=== PATIENT | female | born 1960 | race Caucasian/White ===

== ENCOUNTER 2017-01-02 23:01 | Emergency (ER) | payer OTHER ==
[2017-01-02 23:17] VITALS: BP 114/80
--- NOTE | 2017-01-02 23:38 | EDM.PDOC ---
ED HPI GENERAL MEDICAL PROBLEM - General Chief Complaint: Head Injury Stated Complaint: DROPPED SOMETHING ON HEAD Time Seen by Provider: 01/02/17 23:37 - History of Present Illness INITIAL COMMENTS - FREE TEXT/NARRATIVE: 56-year-old female presents to the emergency room with a head injury. Around 9:30 or 10:00 this morning the patient was moving a baking rack from the lower portion of the rack and forgot there was a 2 gallon glass jar sitting on a shelf approximately 2-1/2-3 feet above her head. When she moved the rack the jar fell down and hit her in the back of the head. She had no loss of consciousness and has done well through the day this evening she develops a mild headache and had an intermittent bout of nausea no vomiting. The patient on occasion gets headaches that are much worse than this worse she has to take something for them she has not needed anything for this headache. After this occurred she had some mild bleeding this was easy to control and she went on with her day. This evening she developed a mild headache and had an episode of mild nausea. Her tetanus status is up-to-date. Occipital Pain Score (Numeric/FACES): 3 - Related Data Allergies Allergy/AdvReac Type Severity Reaction Status Date / Time No Known Allergies Allergy Verified 01/02/17 23:17 Home Meds: Home Meds . [No Known Home Meds] 01/02/17 [History] Past Medical History Musculoskeletal History: Reports: Osteoporosis Social & Family History - Tobacco Use Smoking Status *Q: Never Smoker - Caffeine Use Caffeine Use: Reports: Soda - Recreational Drug Use Recreational Drug Use: No ED ROS GENERAL - Review of Systems Review Of Systems: See Below Constitutional: Reports: No Symptoms HEENT: Reports: No Symptoms Respiratory: Reports: No Symptoms Cardiovascular: Reports: No Symptoms GI/Abdominal: Reports: Nausea. Denies: Abdominal Pain, Vomiting Neurological: Reports: Headache. Denies: Confusion, Dizziness, Numbness, Pre- Existing Deficit, Seizure, Syncope, Tingling, Trouble Speaking, Difficulty Walking, Weakness, Change in Speech, Gait Disturbance Psychiatric: Reports: No Symptoms ED EXAM, HEAD INJURY - Physical Exam Exam: See Below Exam Limited By: No Limitations General Appearance: Alert, No Apparent Distress Head: Normocephalic, Other (She has some swelling over the occiput a 2 cm laceration is noted with some mild gaping approximately 2 mm.) Nexus Criteria: No: Posterior, Midline Cervical Tenderness, Evidence of Intoxication, Altered Level of Consciousness, Focal Neurological Deficit, Painful Distraction Injuries Eyes: Bilateral Eye: EOMI, Normal Inspection, PERRL Ears: Normal External Exam, Normal Canal, Hearing Grossly Normal, Normal TMs Nose: Normal Inspection Throat/Mouth: Normal Inspection, Normal Lips, Normal Teeth, Normal Gums, Normal Oropharynx, Normal Voice, No Airway Compromise Neck: Non-Tender, Full Range of Motion, Other (She is developing some bilateral paraspinous muscle discomfort most noticeable at the base of the skull) Respiratory: No Respiratory Distress, Lungs Clear, Normal Breath Sounds Cardiovascular: Regular Rate, Rhythm, No Edema, No Murmur Extremities: Normal Inspection 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: 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 II-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 after her head injury she is doing okay she's developed a mild headache and has had some intermittent nausea this evening no vomiting neurologic examination is entirely within normal limits. Discussed the pros and cons of the CAT scan and is determined by the patient her and myself to hold off at this point. They live very close to the hospital and can return with any questions or problems there is some assurances in the timing that she has done well the patient occasionally gets headaches and those are much worse than the headache she has at this time. The patient sustained fairly superficial laceration to her occipital region this is nearly 2 cm in length gaps a couple of millimeters. Offered to repair as primary closure will give less of a scar down the road. She would like to hold off on this at this point. Departure - Departure Time of Disposition: 00:21 Disposition: Home, Self-Care 01 Clinical Impression: Head injury - Discharge Information Instructions: Head Injury, Adult Referrals: Kristin Tafoya NP [Primary Care Provider] - Forms: ED Department Discharge Additional Instructions: Return to the emergency room with any questions problems or worsening symptoms. Be awoken every 2 hours this evening to ensure normal behavior and activity. Follow-up with your regular provider in the next few days if needed.
== END 2017-01-03 00:25 | disposition home or self-care (01) ==
LOC: JD.ED 23:01
DX: S09.90XA Unspecified injury of head, initial encounter (principal); W20.8XXA Other cause of strike by thrown, projected or falling object, initial encounter
CPT/HCPCS: 99282; 99283

== ENCOUNTER 2017-10-05 07:43 | Day surgery (SDC) | payer OTHER ==
[~2017-10-05 07:43] MED LIST: Lactated Ringers 1,000 ML IV SCH; Lidocaine 1%/Sod Bicarbonate in NS 8.4% 1 ML Syringe IDERM PRN; Sodium Chloride 0.9% 10 ML Syringe FLUSH PRN
--- NOTE | 2017-10-05 08:02 | PCM.PREANE ---
Preanesthetic Assessment - Anesthesia/Transfusion/Family Hx Anesthesia History: No Prior Anesthesia Family History of Anesthesia Reaction: No Transfusion History: No Prior Transfusion(s) - Review of Systems General: No Symptoms Pulmonary: No Symptoms Cardiovascular: No Symptoms Gastrointestinal: No Symptoms Neurological: No Symptoms Other: Reports: Easy Bruising - Physical Assessment NPO Status Date: 10/04/17 NPO Status Time: 00:00 Pulse: 73 O2 Sat by Pulse Oximetry: 98 Respiratory Rate: 16 Blood Pressure: 111/78 Temperature: 36.8 C Height: 1.68 m Weight: 64.773 kg ASA Class: 2 Mental Status: Alert & Oriented x3 Dentition: Reports: [place](s) Thyro-Mental Finger Breadths: 3 Mouth Opening Finger Breadths: 3 ROM/Head Extension: Full Lungs: Clear to Auscultation, Normal Respiratory Effort Cardiovascular: Regular Rate, Regular Rhythm, No Murmurs - Allergies Allergies/Adverse Reactions: Allergies Allergy/AdvReac Type Severity Reaction Status Date / Time No Known Allergies Allergy Verified 10/04/17 14:25 - Blood Blood Available: No Product(s) Available: None - Anesthesia Plan Pre-Op Medication Ordered: None - Acknowledgements Anesthesia Type Planned: MAC Pt an Appropriate Candidate for the Planned Anesthesia: Yes Alternatives and Risks of Anesthesia Discussed w Pt/Guardian: Yes Pt/Guardian Understands and Agrees with Anesthesia Plan: Yes PreAnesthesia Questionnaire HEENT History: Reports: Impaired Vision, Other (See Below) Other HEENT History: wears glasses Cardiovascular History: Reports: Other (See Below) Other Cardiovascular History: rapid heart rate Respiratory History: Reports: None Gastrointestinal History: Reports: Diverticulosis, GERD, Other (See Below) Other Gastrointestinal History: liver cyst, sigmoid thickening Genitourinary History: Reports: None 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 DISTILLERY History: Reports: , Spontaneous , Other (See Below) Other OB/BYN History: , SAB, vaginal atrophy Musculoskeletal History: Reports: Osteoporosis Neurological History: Reports: None Psychiatric History: Reports: None Endocrine/Metabolic History: Reports: Osteopenia, Vitamin D Deficiency Hematologic History: Reports: None Immunologic History: Reports: None Oncologic (Cancer) History: Reports: None Dermatologic History: Reports: None - Past Surgical History Head Surgeries/Procedures: Reports: None Cardiovascular Surgical History: Reports: None GI Surgical History: Reports: None Female Surgical History: Reports: None Male Surgical History: Reports: None Endocrine Surgical History: Reports: None Neurological Surgical History: Reports: None Musculoskeletal Surgical History: Reports: None Oncologic Surgical History: Reports: None Dermatological Surgical History: Reports: None - SUBSTANCE USE Smoking Status *Q: Never Smoker Tobacco Use Within Last Twelve Months: No Second Hand Smoke Exposure: No Days Per Week of Alcohol Use: 1 Number of Drinks Per Day: 1 Total Drinks Per Week: 1 Recreational Drug Use History: No - HOME MEDS Home Medications: Home Meds Alendronate Sodium [Fosamax] 70 mg PO DAILY 10/04/17 [History] Ca Carbonate/Vitamin D3/Vit K [Calcium + D Soft Chewable Tab] 1 tab PO BID 10/04 [History] - CURRENT (IN HOUSE) MEDS Current Meds: Current Medications Lactated Ringer's (Ringers, Lactated) 1,000 mls @ 125 mls/hr IV ASDIRECTED ALMA Lidocaine/Sodium Bicarbonate (Buffered Lidocaine 1% In Ns 8.4%) 0.25 ml IDERM ONETIME PRN PRN Reason: Prior to IV Start Sodium Chloride (Saline Flush) 10 ml FLUSH ASDIRECTED PRN PRN Reason: Keep Vein Open
[2017-10-05] MEDS ORDERED: Propofol 200 MG/20 ML SDV ONE ×2 (08:10→08:32)
[2017-10-05] MEDS ORDERED: Midazolam 1 MG/ML 2 ML SDV ONE (08:10)
[2017-10-05] MEDS ORDERED: Lidocaine 1% 4 ML ONE (08:10)
[2017-10-05] MEDS ORDERED: fentaNYL 100 MCG/2 ML SDV ONE (08:31)
--- NOTE | 2017-10-05 08:43 | PCM.OPNOTE ---
- General Post-Op/Procedure Note Date of Surgery/Procedure: 10/05/17 Operative Procedure(s): Colonoscopy Findings: 1. External hemorrhoids 2. Uncomplicated sigmoid diverticulosis Pre Op Diagnosis: History of sigmoid diverticulitis treated medically Post-Op Diagnosis: 1. Sigmoid diverticulosis. 2. Mild external hemorrhoids uncomplicated Anesthesia Technique: MAC, Moderate Sedation Primary Surgeon: Fadi Dodson EBL in mLs: 0 Complications: None Condition: Good Free Text/Narrative:: After adequate IV sedation and analgesia was obtained the patient was placed on her left side. Perianal inspection revealed the external hemorrhoids. Digital rectal examination was otherwise unremarkable. A lubricated colonoscope wasthen inserted into the rectum then advanced under direct vision to the cecum without difficulty. The bowel preparation was excellent. The cecum right colon transverse and descending colons were endoscopically normal with no mass lesions or inflammatory changes seen. The descending colon was unremarkable as well. The sigmoid had a few scattered small, scattered diverticuli but no mass lesions. There were no acute inflammation in this area. The rectum was unremarkable in both views. Air was removed as I finished the procedure which she tolerated well. Housekeeping Cleaner photographs were taken for the patient and for the medical record.
--- NOTE | 2017-10-05 08:48 | PCM48HPAN ---
Post Anesthesia Note - EVALUATION WITHIN 48HRS OF ANESTHETIC Vital Signs in Normal Range: Yes Patient Participated in Evaluation: Yes Respiratory Function Stable: Yes Airway Patent: Yes Cardiovascular Function Stable: Yes Hydration Status Stable: Yes Pain Control Satisfactory: Yes Nausea and Vomiting Control Satisfactory: Yes Mental Status Recovered: Yes Pulse Rate: 73 Resp Rate: 16 Temperature: 36.8 C Blood Pressure: 111/78 - COMMENTS/OBSERVATIONS Free Text/Narrative:: no anesthesia complications noted
[2017-10-05 09:06] VITALS: BP 91/60
== END 2017-10-05 09:36 | disposition home or self-care (01) ==
LOC: JD.SDS 07:43
PROVIDERS: ATTEND Surgery
DX: Z09 Encounter for follow-up examination after completed treatment for conditions other than malignant neoplasm (principal); K57.30 Diverticulosis of large intestine without perforation or abscess without bleeding; K64.4 Residual hemorrhoidal skin tags; Z87.19 Personal history of other diseases of the digestive system
CPT/HCPCS: 45378; J2001; J2250; J3010; J7120; J2704

== ENCOUNTER 2021-08-20 07:29 | Day surgery (SDC) | payer BC ==
[~2021-08-20 07:29] MED LIST changes: -Lactated Ringers 1,000 ML IV SCH; +Lidocaine 1% 2 ML ONE; -Lidocaine 1%/Sod Bicarbonate in NS 8.4% 1 ML Syringe IDERM PRN; +Propofol 200 MG/20 ML SDV ONE; -Sodium Chloride 0.9% 10 ML Syringe FLUSH PRN
[2021-08-20] MEDS ORDERED: Lactated Ringers 1,000 ML IV SCH (08:00)
[2021-08-20 09:32] VITALS: BP 111/77; PULSE 77
== END 2021-08-20 09:40 | disposition home or self-care (01) ==
LOC: JD.SDS 07:29
PROVIDERS: ATTEND Surgery
DX: K20.0 Eosinophilic esophagitis (principal); K21.9 Gastro-esophageal reflux disease without esophagitis; K44.9 Diaphragmatic hernia without obstruction or gangrene; E78.5 Hyperlipidemia, unspecified; E55.9 Vitamin D deficiency, unspecified; M81.0 Age-related osteoporosis without current pathological fracture; Z79.899 Other long term (current) drug therapy
CPT/HCPCS: 43239; J2704; 00731